=== PATIENT | female | born 1960 | race Caucasian/White ===

== ENCOUNTER → 2022-02-08 | Outpatient (CLI) | payer OTHER ==
[~2022-02-08] MED LIST: BEBTELOVIMAB (EUA) 175 MG/2 ML VIAL IV NR; SODIUM CHLORIDE 0.9% 500 ML 500 ML in EMPTY BAG 1 BAG IV PRN
[2022-02-08 13:48] VITALS: RESP 16; TEMP 98.3
[2022-02-08 14:31] VITALS: BP 111/68; PULSE 59
== END ==
LOC: PROCWHC3 12:58
PROVIDERS: ATTEND Internal Medicine
DX: U07.1 COVID-19 (principal)
CPT/HCPCS: Q0222; M0222